=== PATIENT | female | born 1980 | race Caucasian/White ===

== ENCOUNTER 2018-03-21 13:12 | Day surgery (SDC) | payer OTHER, SELFPAY ==
--- NOTE | 2018-03-14 10:02 | NURSING ---
pt noncompliant with health history. refused to give hx of surgeries and health questions. stated she has had anesth. in the past at [facility] and this should be on file. Would not provide a list of home medications. stated she takes medications that she cannot function without and will take them the day of surgery. dr. wilson's office called and asked if they had a list of home medications on file and they reported that pt reports she does not take any medications. pt instructed to call pat # back with an updated list of medications.
--- NOTE | 2018-03-21 13:12 | DT_ITS ---
This patient was seen during an EMR downtime March 18, 2018 - March 25, 2018. This patient may have a combination of paper and electronic documentation or all paper documentation. All documentation is viewable within the e-chart portion of [facility] for each patient visit.
--- NOTE | 2018-03-21 15:17 | FALS_PTH ---
PATIENT: JULIO BARRERA [place] [facility] [id number] AGE/SX: 37/F ROOM: RE03/21/[address]: Dr. Chrissie Conway MD : 1980 BED: DIS: 03/21/2018 SPEC #: [id number] RECD: 03/22/18 10:49 STATUS: GASTON VINCENT #: [id number] SUE: 03/21/18 15:[address]: Chrissie Conway DEPT: SURGICAL PATHOLOGY RECD BY: Drew Woodward ENTERED: 03/22/18 10:54 SP TYPE: FALL TUBES OTHR DR: Dr. Yoandy Brody MD Tissues: Fallopian tube Procedures: Surgery Specimen Level II HEADER OPERATION: Laparoscopic salpingectomy PRE-OP DIAGNOSIS: Desires sterilization TISSUE SUBMITTED: Bilateral fallopian tube portions MICROSCOPIC DIAGNOSIS Bilateral fallopian tubes, salpingectomy: Bilateral fallopian tubes including fimbrial ends, no pathologic diagnosis. SJ:danilo 03/25/18 MICROSCOPIC DESCRIPTION Slides are reviewed. GROSS DESCRIPTION Received in fixative is one container labeled with the patient's name and designated right fallopian and left fallopian tube portions. The specimen consists of bilateral fallopian tubes including fimbrial ends. The fallopian tubes are not identified as right or left. One of the fallopian tubes measure 7 cm in length and 0.9 cm in diameter. The second fallopian tube measures 6 cm in length and 0.8 cm in diameter. Sections do not reveal any mass lesion. Post Anesthesia Room Nurse sections are submitted in two cassettes with each cassette containing one fallopian tube. / SJ:danilo 03/22/18 TC:4 CPT: 94087 x2
[2018-03-24 13:27] LABS: Absolute Neutrophil Count 2.4 X10^3/uL (2.0-7.7); Basophil% 0.5 % (0-1); Eosinophils% 2.3 % (0-5); Hematocrit 41.2 % (37-47); Hemoglobin 14.2 g/dl (12.0-15.0); Lymphocyte % 51.6 % (19-41); Mean Corp Hgb Conc 34.5 g/gl (32-36); Mean Corpuscular Hgb 30.5 pg (27.0-32.0); Mean Corpuscular Volume 88.6 fL (81-99); Mean Platelet Vol. 9.9 fl (6.2-12.0); Monocyte% 6.9 % (0-10); Neutrophil # 2.35 X10^3/uL (2.7-7.7); Neutrophil % 38.5 % (47-70); POSITIVE COUNT NO; POSITIVE DIFFERENTIAL NO; POSITIVE MORPHOLOGY NO; Platelet Count 272 K/mm3 (150-450); RBC Distribution Width SD 41.4 fl (35.1-43.9); Red Blood Count 4.65 M/mm3 (4.2-5.4); White Blood Count 6.1 K/mm3 (4.4-11.0)
[2018-03-24 13:28] LABS: Absolute Lymphocyte Count 3.15 X10^3/ul (0.83-4.51); Basophil# 0.03 X10^3/uL; Eosinophil# 0.14 X10^3/uL; Lymphocyte # 3.15 X10^3/ul (4.0); Monocyte# 0.42 X10^3/uL
[2018-03-24 14:07] LABS: Internal QC Validated? YES +Cl - CLEAR BKGD; Pregnancy, Urine Negative Negative
== END 2018-03-21 16:54 | disposition home or self-care (01) ==
LOC: SDC 13:14 → AC 13:14
PROVIDERS: Family Provider Family Medicine; PCP Family Medicine; Visit Provider Obstetrics & Gynecology
PROC: (CPT 58661; principal; 2018-03-21 15:00)
DX: Z30.2 Encounter for sterilization (principal); E66.01 Morbid (severe) obesity due to excess calories; Z87.820 Personal history of traumatic brain injury; Z87.891 Personal history of nicotine dependence; Z86.2 Personal history of diseases of the blood and blood-forming organs and certain disorders involving the immune mechanism
CPT/HCPCS: 58661; 81025; 85025; 86850; 86900; 88302; J7120; J2405

== ENCOUNTER → 2019-01-01 16:42 | Outpatient (CLI) | payer OTHER, SELFPAY ==
[2019-01-01 15:14] VITALS: BMI 37.2
--- NOTE | 2019-01-01 15:30 | EMB_PTH ---
PATIENT: JULIO BARRERA LOC: [facility] U#:[id number] AGE/SX: 44/F ROOM: RE01/01/[address]: JUAN Aiken : 1980 BED: DIS: SPEC #: [id number] RECD: 01/01/19 16:30 STATUS: GASTON RETello #: [id number] SUE: 01/01/19 15:[address]: Olga Wick NP DEPT: SURGICAL PATHOLOGY RECD BY: Won Bowen ENTERED: 01/02/19 10:35 SP TYPE: ENDOM BX/C PARAG DR: Dr. Yoandy Brody MD Tissues: Endometrium, NOS Procedures: Surgery Specimen Level IV HEADER OPERATION: Endometrial biopsy PRE-OP DIAGNOSIS: Abnormal uterine bleeding TISSUE SUBMITTED: Endometrial lining MICROSCOPIC DIAGNOSIS Endometrial biopsy: Mildly disordered proliferative endometrium. SJ:danilo 01/03/19 MICROSCOPIC DESCRIPTION Slides are reviewed. GROSS DESCRIPTION Received is one container labeled with the patient's name and not further designated. The specimen consists of multiple fragments of hemorrhagic soft tissue that in aggregate measure 3 x 2.5 x 0.3 cm. The specimen is totally submitted in one cassette. / SJ:danilo 01/02/19 TC:5 CPT: 44790
== END ==
PROVIDERS: Family Provider Family Medicine; PCP Family Medicine; Referring Provider Nurse Practitioner Women's Health; Visit Provider Nurse Practitioner Women's Health
DX: N93.9 Abnormal uterine and vaginal bleeding, unspecified (principal)
CPT/HCPCS: 88305

== ENCOUNTER → 2019-01-10 07:30 | Outpatient (CLI) | payer OTHER, SELFPAY ==
[2019-01-01 15:14] VITALS: BMI 37.2
--- NOTE | 2019-01-10 07:36 | US_ITS ---
STUDY: ULTRASOUND OF THE FEMALE PELVIS - COMPLETE REASON FOR EXAM: Female, 38 years old. Menorrhagia LMP: 12/26/2018 TECHNIQUE: Transabdominal imaging initially performed with subsequent endovaginal imaging needed due to poor acoustic window (decompressed urinary bladder). TECHNICAL QUALITY: Adequate. COMPARISON: None. FINDINGS: The uterus is anteverted and is in a midline position. The uterus measures 12.9 x 6.0 x 5.9 cm. There are Nabothian cysts of the cervix. The endometrium measures 10.6 mm in thickness, and is hyperechoic. There is no demonstrated endometrial mass. There is no demonstrated myometrial mass. I.U.D. - The patient does not have an I.U.D. The right ovary is visualized. The right ovary measures 3.4 x 3.5 x 2.3 cm. There is a dominant follicle the right ovary measuring 2.6 cm. There is no visualized right adnexal mass or complex lesion. There is normal arterial and normal venous vascularity. The left ovary is visualized. The left ovary measures 2.4 x 1.5 x 2.1 cm. There is no left ovarian cyst or ovarian mass. There is no visualized left adnexal mass or complex lesion. There is normal arterial and normal venous vascularity. There is no fluid in the cul-de-sac. Urinary bladder is not well-distended. US/Transvaginal Non- IMPRESSION: Normal female pelvis. Electronically Signed: Hao Caban MD at 12:14 EDT , Service support ,
--- NOTE | 2019-01-10 07:36 | US_ITS ---
STUDY: ULTRASOUND OF THE FEMALE PELVIS - COMPLETE REASON FOR EXAM: Female, 38 years old. Menorrhagia LMP: 12/26/2018 TECHNIQUE: Transabdominal imaging initially performed with subsequent endovaginal imaging needed due to poor acoustic window (decompressed urinary bladder). TECHNICAL QUALITY: Adequate. COMPARISON: None. FINDINGS: The uterus is anteverted and is in a midline position. The uterus measures 12.9 x 6.0 x 5.9 cm. There are Nabothian cysts of the cervix. The endometrium measures 10.6 mm in thickness, and is hyperechoic. There is no demonstrated endometrial mass. There is no demonstrated myometrial mass. I.U.D. - The patient does not have an I.U.D. The right ovary is visualized. The right ovary measures 3.4 x 3.5 x 2.3 cm. There is a dominant follicle the right ovary measuring 2.6 cm. There is no visualized right adnexal mass or complex lesion. There is normal arterial and normal venous vascularity. The left ovary is visualized. The left ovary measures 2.4 x 1.5 x 2.1 cm. There is no left ovarian cyst or ovarian mass. There is no visualized left adnexal mass or complex lesion. There is normal arterial and normal venous vascularity. There is no fluid in the cul-de-sac. Urinary bladder is not well-distended. US/Pelvic (Non ) IMPRESSION: Normal female pelvis. Electronically Signed: Hao Caban MD at 12:14 EDT , Service support ,
== END ==
PROVIDERS: Family Provider Family Medicine; PCP Family Medicine; Referring Provider Nurse Practitioner Women's Health; Visit Provider Nurse Practitioner Women's Health
DX: N92.0 Excessive and frequent menstruation with regular cycle (principal)
CPT/HCPCS: 76830; 76856

== ENCOUNTER → 2020-10-29 17:06 | Outpatient (CLI) | payer OTHER, SELFPAY ==
[2019-01-01 15:14] VITALS: BMI 37.2
== END ==
PROVIDERS: PCP Family Medicine; Referring Provider Family Medicine; Visit Provider Family Medicine
DX: U07.1 COVID-19 (principal)
CPT/HCPCS: 87635; C9803; U0005; U0003

== ENCOUNTER 2021-12-21 10:00 | Outpatient (RCR) | payer OTHER, SELFPAY ==
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
--- NOTE | 2021-12-21 10:31 | HP.PTREVAL ---
Dr. Yoandy Brody MD, It has been my pleasure to treat JULIO BARRERA over the last 3 visits for Post Concussion Syndrome, Chronic JADE. Please see the progress note below for an update on the physical therapy plan of care! Subjective: Did well with exercises. Prefers them at home with band. Stretches going well. Saw surgeon and will not have thoracic outlet surgery. Feels better endurance and strength better that she can take more in her neck and shoulders. Wants to continue with current workout progressions and adding any more exercises. JADE not a big problem and not as intense or kick in as quick as she gets stronger. Objective/Function: Full UE AROM, minimal slowness at end of elevation, strength UE at 4/5 without myotomal weakness in UE. Nerve stretches being done properly and not a problem today. Some tingling intermittently in L forearm. Full neck aROM without c/o pain today. Overall patient doing very well and with positive attitude. Does not wish to get into more gym based core or LE strength ex today as she wants to focus on her current ex which are helping. Plan Plan: f/u one month if needed and desired to progress to gym/home LE and abd/back ext strrength. Pt may call to cancel if doing well and then will discharge or may call prior if condition worsens. Balance/Gait/Functional tests - Balance/Special Test Scores Oswestry Neck Score: 29 Goals Goal 1:: Patient will be I with HEP and progression Goal Time Frame: 4-6 Weeks Goal Progress: Goal Met Goal 2:: Patient will maintain proper posture t/o tx session to demo increased core s/s Goal Time Frame: 4-6 Weeks Goal Progress: Goal Met Goal 3:: Patient will report no pain with nerve glides Goal Time Frame: 4-6 Weeks Goal Progress: Progressing Anticipated Interventions Patient/Client Instruction: Educate patient on: Benefits of Fitness Program Therapeutic Exercise to Include: Strength training, Endurance training, Balance training, Coordination, Agility training, Body mechanics, Postural training, Flexibilty training, Gait and locomotor training, Neuromotor development, Dynamic Lumbar Stabilization, Scapular Strength/Stabilization For the Purpose of:: To improve muscle performance and motor function Please do not hesitate to contact me at [phone] by phone or if you have questions or concerns regarding this new plan of care! Sincerely, Dannie Esquivel, DPT, OCS, CSCS
--- NOTE | 2022-03-30 15:24 | HP.PT.NRP ---
JULIO BARRERA was seen in my office for initial evaluation on 11/07/21. The following Plan of Care was established for this patient: Initial Frequency: 2x /Week Initial Duration: 4 Weeks Patient/Client Instruction: Educate patient on: Benefits of Fitness Program Therapeutic Exercise to Include: Strength training, Endurance training, Balance training, Coordination, Agility training, Body mechanics, Postural training, Flexibilty training, Gait and locomotor training, Neuromotor development, Dynamic Lumbar Stabilization, Scapular Strength/Stabilization For the Purpose of:: To improve muscle performance and motor function This patient was last seen in our office . Pertinent comments regarding their Physical therapy will appear below: Patient has not attended PT in over 30 days- appropriate to be d/c and return to MD for further evaluation as needed. At this point I will be discontinuing this patient from physical therapy. I would be happy to see this patient again in the future if found appropriate by the physician. Thank you! Nikki Valenzuela, DPT Balance/Gait/Functional tests - Balance/Special Test Scores Oswestry Neck Score: 29
== END 2021-12-21 19:00 | disposition home or self-care (01) ==
LOC: PT 10:00
PROVIDERS: PCP Family Medicine; Referring Provider Family Medicine; Visit Provider Family Medicine
DX: F07.81 Postconcussional syndrome (principal); R51.9 Headache, unspecified
CPT/HCPCS: 97110; 97162; 97530

== ENCOUNTER 2021-12-30 10:37 | Outpatient (CLI) | payer OTHER, SELFPAY ==
--- NOTE | 2021-12-30 10:38 | BI_ITS ---
MAMMOGRAPHY - BILATERAL SCREENING 3-D TOMOSYNTHESIS REASON FOR EXAM: Female, 41 years old. screening for breast cancer PERTINENT HISTORY: No significant family history. TECHNIQUE: 2-D mammograms and 3-D Tomosynthesis of the breast (s) were performed. CAD was performed. COMPARISON: None. FINDINGS: The breast composition is composed of scattered fibroglandular density. Scattered benign calcifications are seen. No dense spiculated masses or suspicious microcalcifications are identified. No architectural distortion is identified. There is no skin thickening or retraction. Bilateral large benign rim calcifications likely from prior trauma. BI/SCRN MAMM (CAD)W/JOYCE BILAT IMPRESSION: No mammographic signs of malignancy. Routine yearly mammograms recommended. ASSESSMENT CATEGORY: BIRADS Category 2: Benign. A letter regarding these results will be sent to the patient by the facility within 30 days. FOLLOW UP RECOMMENDATION: Yearly follow up mammogram recommended. (A) Approximately 10% of breast cancers are not detected by mammography. A normal mammogram should not delay biopsy of a clinically suspicious abnormality. Electronically Signed: Drew Kaur MD at 13:22 EDT ,
== END 2021-12-30 23:59 | disposition home or self-care (01) ==
LOC: OPBI 10:37
PROVIDERS: PCP Family Medicine; Referring Provider Obstetrics & Gynecology; Visit Provider Obstetrics & Gynecology
DX: Z12.31 Encounter for screening mammogram for malignant neoplasm of breast (principal)
CPT/HCPCS: 77063; 77067

== ENCOUNTER → 2022-03-10 | Outpatient (CLI) | payer OTHER, SELFPAY ==
[2022-03-15 09:54] LABS: HPV APTIMA, High Risk Negative (Negative)
== END | disposition home or self-care (01) ==
LOC: LABSPEC 03-17 05:00
PROVIDERS: PCP Family Medicine; Visit Provider Obstetrics & Gynecology
DX: Z01.419 Encounter for gynecological examination (general) (routine) without abnormal findings (principal)
CPT/HCPCS: 87624; 88175; G0145

== ENCOUNTER 2022-10-10 09:01 | Emergency (ER) | payer OTHER, SELFPAY ==
[2022-10-10 09:02] VITALS: BP 154/94; PULSE 138; RESP 16; TEMP 36.4; O2SAT 100; BMI 32.8
--- NOTE | 2022-10-10 09:16 | EDS_ITS ---
HPI HPI - Female History of Present Illness Chief Complaint: Vag Bleeding Narrative Narrative: 42-year old female past medical history of bleeding disorder but she is unsure as to what type, presents with heavy vaginal bleeding that she has had over the last few days. She became lightheaded yesterday. She relates history that she has had regular menses over the last few years that have been very heavy in nature. Her last menstrual period started on September 04, approximately over a month ago. She had bleeding daily since then. Over the last few days she had increased, heavy bleeding and felt lightheaded. In the past, 2 years ago, she tried control pills which helped temporarily, but stopped taking them. She states that her [facility] OPERATOR's office sent her in here because of the lightheadedness and continued heavy bleeding. Past surgical history includes bilateral tubal ligation. She does not take blood thinners. She states over the last 24 hours she is currently using around 4 pads/tampons per hour. PFSH PFSH Home Medications norethindrone acetate 5 mg tablet (Aygestin) 5 mg PO DAILY #50 tabs 10/10/22 [Rx Last Taken Unknown] Allergy/AdvReac Type Severity Reaction Status Date / Time Tetanus Vaccines and Toxoid AdvReac Swelling Verified 10/10/22 09:02 [Tetanus Vaccines & Toxoid] Family History Mother Cancer lung Grandmother Breast cancer Heart disease Surgical History delivery delivered H/O tubal ligation Hx of breast reduction, elective Social History Smoking Status: Never smoker alcohol intake: never substance use type: does not use caffeine: Yes frequency: 5-6 times per week seatbelt use: always do you feel safe at home: Yes additional social history: [employer] 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 HEENT: No sore throat. No neck pain. No loss of vision. No rhinorrhea. Cardiovascular: No chest pain. No palpitations. No pedal edema. Respiratory: No cough, no shortness of breath. Abdominal: No abdominal pain. No nausea. No vomiting. Genitourinary: No dysuria. No hematuria. Increased vaginal bleeding. Having daily menstruation since September 04, over a month ago. Musculoskeletal: No myalgias. No arthralgias. Neurologic: No headaches. No dizziness. Positive lightheadedness. Skin: No rash. No change in color. Psychiatric: No depression. No anxiety. EXAM Physical Exam Narrative Exam Narrative: Afebrile. Vital signs noted. HEENT: Normocephalic. Atraumatic. PERRL, EOMI. Neck soft and supple. No point tenderness or step off. Cardiovascular: Positive tachycardia. No murmurs, rubs, or gallops appreciated. Respiratory: No tachypnea. Lungs clear to auscultation bilaterally. Gastrointestinal: Abdomen soft, nontender, with normoactive bowel sounds. No rebound or guarding. Neurological: Awake. Alert. Nonfocal, nonlateralizing. Skin: No rash. Normal color. No pallor. No subconjunctival Tyverb pallor or central cyanosis. Musculoskeletal: No pedal edema. Full range of motion extremities. Const Vital Signs: 10/10/22 09:02 Temperature 97.6 F L Temperature Source Temporal Pulse Rate 138 H Respiratory Rate 16 Blood Pressure 154/94 H Blood Pressure Mean 114 Pulse Ox 100 Oxygen Delivery Method Room Air MDM MDM MDM Narrative Medical decision making narrative: CBC and serum test was obtained. I will perform pelvic examination. CBC shows hemoglobin of 10.9 with normal platelet count of 304. Serum test is negative. Chaperoned pelvic examination did reveal clots and old blood in the vaginal vault which were removed with cotton-tipped swabs, and small amount of blood coming from the cervical os. No active hemorrhaging or repooling of blood in the vaginal vault. I discussed the patient with Dr. Chrissie Conway. She would like an ultrasound performed, and the patient started on Aygestin, 5 mg 3 times a day for 2 days, then twice a day until bleeding stops, then once daily thereafter. She would like 50 tablets with 1 refill prescribed. Patient was warned of the risk of thrombophlebitis, and blood clots and other blood vessels, but she does have a bleeding disorder. She acknowledges an understanding. Ultrasound shows endometrium is nonspecifically thickened at 13 mm and heterogeneous, no evidence of discrete lesion or polyp/fibroid. At this point in time, I feel she be discharged safely home to follow-up with her [facility]. Return instructions to the emergency department were reviewed. Disposition is discharged home in stable condition. Lab Data Attestation: I reviewed the patient's lab results. Labs: Laboratory Results - last 24 hr 10/10/22 10/10/22 09:43 09:43 WBC 4.6 RBC 3.57 L Hgb 10.9 L Hct 32.7 L MCV 91.6 MCH 30.5 MCHC 33.3 RDW Std Deviation 42.4 RDW Coeff of Monse 13.0 Plt Count 304 MPV 9.8 Immature Gran % (Auto) 0.600 Neut % (Auto) 48.5 Lymph % (Auto) 43.1 H [place] % (Auto) 5.8 Eos % (Auto) 1.1 Baso % (Auto) 0.9 Absolute Neuts (auto) 2.2 Absolute Lymphs (auto) 1.99 Nucleated RBC % 0 Serum , Qual NEGATIVE Radiography Diagnostic Testing: Clinical Impression(s) from Imaging Studies Transvaginal US 10/10/22 10:11 IMPRESSION: Endometrium is nonspecifically thickened at 13 mm and is heterogeneous but there is no discrete lesion, or polyp Sonographically normal left ovary, right ovary not visualized No demonstrated free fluid Electronically Signed: Carlton Arreola MD at 11:30 EST Reading Location ID and State: [facility] / [place] , Service support , Discharge Plan Triage Chief Complaint: Vag Bleeding ED Provider: Terell Cristobal Dx/Rx/DC Orders Clinical Impression: Abnormal vaginal bleeding, H/O bleeding disorder Instructions: Understanding Uterine Bleeding, ED Dysfunctional Uterine Bleeding Prescriptions: New norethindrone acetate [Aygestin] 5 mg tablet 5 mg PO DAILY Qty: 50 1RF Rx Instructions: Start 5 mg by mouth 3 times a day for 2 days, then 5 mg by mouth twice a day until bleeding stops, then 5 mg by mouth once a day Primary Care Provider: Yoandy Brody Referrals: Yoandy Brody MD [Primary Care Provider] - Chrissie Conway MD [Med Staff - Active Staff] - As soon as possible Disposition Disposition: Home, Self Care
[2022-10-10 09:54] LABS: Absolute Lymphocyte Count 1.99 X10^3/uL (0.83-4.51); Absolute Neutrophil Count 2.2 X10^3/uL (2.0-7.7); Basophil# 0.04 X10^3/uL; Basophil% 0.9 % (0-1); Eosinophil# 0.05 X10^3/uL; Eosinophils% 1.1 % (0-5); Hematocrit 32.7 % (37-47); Hemoglobin 10.9 g/dL (12.0-15.0); Lymphocyte # 1.99 X10^3/ul (0.83-4.51); Lymphocyte % 43.1 % (19-41); Mean Corp Hgb Conc 33.3 g/dL (32-36); Mean Corpuscular Hgb 30.5 pg (27.0-32.0); Mean Corpuscular Volume 91.6 fL (81-99); Mean Platelet Vol. 9.8 fl (6.2-12.0); Monocyte# 0.27 X10^3/uL; Monocyte% 5.8 % (0-10); NRBC Flagged by Analyzer 0 % (0-5); Neutrophil # 2.24 X10^3/uL (2.7-7.7); Neutrophil % 48.5 % (47-70); Platelet Count 304 K/mm3 (150-450); RBC Distribution Width SD 42.4 fl (35.1-43.9); Red Blood Count 3.57 M/mm3 (4.2-5.4); White Blood Count 4.6 K/mm3 (4.4-11.0)
[2022-10-10 10:02] LABS: Internal QC Validated? YES +Cl - CLEAR BKGD; Pregnancy, Serum, hCG Quali. NEGATIVE Negative
--- NOTE | 2022-10-10 10:11 | US_ITS ---
INDICATION: Vaginal bleeding Patient is 42-year-old female EXAMINATION: Ultrasound US Transvaginal Non-OB TECHNIQUE: Transvaginal (for optimal evaluation of the adnexa) pelvic ultrasound was performed. Grayscale, spectral waveform, and color flow Doppler evaluation of the adnexa. COMPARISON: None. FINDINGS: UTERUS: Anteverted, tilted left. The uterus measures 11.9 x 6.7 x 5.9 cm. There is no uterine mass. The endometrial stripe measures 13 millimeters in AP diameter which is within normal limits. RIGHT OVARY: Not visualized LEFT OVARY: 2.4 x 1.6 x 1.9 cm. Non-enlarged, normal echogenicity. There is normal arterial inflow and venous outflow present in the left ovary. FREE FLUID: None. US/Transvaginal Non- IMPRESSION: Endometrium is nonspecifically thickened at 13 mm and is heterogeneous but there is no discrete lesion, or polyp Sonographically normal left ovary, right ovary not visualized No demonstrated free fluid Electronically Signed: Carlton Arreola MD at 11:30 EST ,
[2022-10-10] MEDS: 0.9% Normal Saline 1,000 ML 999 ML IV (10:47)
[2022-10-10 12:00] VITALS: BP 113/72; PULSE 90; RESP 16; O2SAT 100
== END 2022-10-10 12:01 | disposition home or self-care (01) ==
PROVIDERS: Emergency Provider Emergency Medicine; PCP Family Medicine; Visit Provider Emergency Medicine
DX: N93.9 Abnormal uterine and vaginal bleeding, unspecified (principal)
CPT/HCPCS: 76830; 84703; 85025; 99283; J7030; A4216

== ENCOUNTER → 2022-11-16 | Outpatient (CLI) | payer OTHER, SELFPAY ==
--- NOTE | 2022-11-16 | EMB_PTH ---
PATIENT: JULIO BARRERA LOC: [facility] U#:[id number] AGE/SX: 42/F ROOM: RE11/16/[address]: Dr. Chrissie Conway MD : 1980 BED: DIS: 11/16/2022 SPEC #: [id number] RECD: 11/16/22 16:13 STATUS: GASTON KAUR #: [id number] SUE: 11/16/22 00:[address]: Chrissie Conway DEPT: SURGICAL PATHOLOGY RECD BY: Miranda Collier ENTERED: 11/17/22 12:44 SP TYPE: ENDOM BX/C PARAG DR: Dr. Yoandy Brody MD Tissues: Endometrium, NOS Procedures: Surgery Specimen Level IV HEADER OPERATION: Endometrial biopsy PRE-OP DIAGNOSIS: Abnormal uterine bleeding TISSUE SUBMITTED: Endometrial biopsy MICROSCOPIC DIAGNOSIS Endometrium, biopsy: Fragments of benign superficial glandular and squamous mucosa. See comment. AM:danilo 11/20/2022 COMMENT The specimen may contain fragments of endocervix, endometrium and squamous mucosa. Clinical correlation is suggested. MICROSCOPIC DESCRIPTION Slides are reviewed. GROSS DESCRIPTION Received is one container labeled with the patient's name and not further designated. The specimen consists of multiple irregular fragments of [place] soft tissue that in aggregate measure <0.1 x <0.1 x <0.1 cm. The specimen is totally submitted in one cassette. / SJ:danilo 11/17/2022 TC:5 CPT: 29924
== END | disposition home or self-care (01) ==
LOC: LABSPEC 16:21
PROVIDERS: PCP Family Medicine; Visit Provider Obstetrics & Gynecology
DX: N93.9 Abnormal uterine and vaginal bleeding, unspecified (principal)
CPT/HCPCS: 88305

== ENCOUNTER → 2023-03-26 | Outpatient (CLI) | payer OTHER, SELFPAY ==
--- NOTE | 2023-03-26 14:23 | BI_ITS ---
MAMMOGRAPHY - BILATERAL DIAGNOSTIC REASON FOR EXAM: Female, 42 years old. Palpable lump at the 12:00 position of the left breast. PERTINENT HISTORY: Grandmother with breast cancer. History of prior bilateral breast reduction surgery. TECHNIQUE: Digital bilateral breast mor (3D mammographic acquisition) in the CC and MLO projections. 2-D mediolateral oblique (MLO) and craniocaudad (CC) views of both breasts were obtained. CAD: Full Field Digital Mammography with Computer Added Detection was performed. COMPARISON: Comparison is made with prior study dated December 30, 2021. FINDINGS: Breast Composition: The breasts are almost entirely fatty. Stable bilateral densely calcified nodules in both breasts. The palpable lump corresponds to a 2.5 cm x 2 cm densely calcified nodule in the superior retroareolar region of the left breast. No other significant abnormalities are identified. There has been no significant change since the prior study. BI/DIAG MAMM W/CAD, BILAT IMPRESSION: Stable bilateral diagnostic mammogram. One year follow-up recommended. (A) ASSESSMENT CATEGORY: BIRADS Category 2: Benign. A letter regarding these results will be sent to the patient by the facility within 30 days. Approximately 10% of breast cancers are not detected by mammography. A normal mammogram should not delay biopsy of a clinically suspicious abnormality. Electronically Signed: Drake Myrick MD at 15:42 EDT ,
== END | disposition home or self-care (01) ==
PROVIDERS: Referring Provider Obstetrics & Gynecology; Visit Provider Obstetrics & Gynecology
DX: N63.25 Unspecified lump in the left breast, overlapping quadrants (principal)
CPT/HCPCS: 77062; 77066; G0279

== ENCOUNTER → 2023-04-03 | Outpatient (CLI) | payer OTHER, SELFPAY ==
--- NOTE | 2023-04-03 12:41 | US_ITS ---
INDICATION: lost IUD strings EXAMINATION: Ultrasound US Transvaginal Non-OB TECHNIQUE: Transvaginal pelvic ultrasound was performed. Grayscale, spectral waveform, and color flow Doppler evaluation of the adnexa. COMPARISON: None. FINDINGS: UTERUS: Anteverted. The uterus measures 11.6 x 6.6 x 6.0 cm. There is myometrial heterogeneity with no uterine mass. There is an IUD in place. The endometrial stripe measures 4 mm in AP diameter which is within normal limits. RIGHT OVARY: 1.5 x 2.1 x 2.1 cm. Non-enlarged, normal echogenicity. There is normal arterial inflow and venous outflow present in the right ovary. LEFT OVARY: 2.9 x 2.5 x 2.5 cm. There is a 2.7 x 2.1 x 2.0 cm cystic nodule. There is normal arterial inflow and venous outflow present in the left ovary. FREE FLUID: None. US/Transvaginal Non- IMPRESSION: IUD in the uterus. Left ovarian cystic nodule. Electronically Signed: Paddy Rivas DO at 16:57 EDT ,
== END | disposition home or self-care (01) ==
PROVIDERS: Referring Provider Obstetrics & Gynecology; Visit Provider Obstetrics & Gynecology
DX: T83.32XA Displacement of intrauterine contraceptive device, initial encounter (principal)
CPT/HCPCS: 76830

== ENCOUNTER → 2023-05-15 | Outpatient (CLI) | payer OTHER, SELFPAY ==
--- NOTE | 2023-05-15 07:05 | US_ITS ---
STUDY: ULTRASOUND TRANSVAGINAL CLINICAL: Female, 42 years old. Left ovarian cyst. TECHNIQUE: Transvaginal COMPARISON: 04/03/2023 FINDINGS: Normal uterine size measuring 12.7 cm in maximal craniocaudal dimension. There are no myometrial masses. Normal endometrial thickness measuring 2.7 mm. There are no endometrial masses, and there is no fluid in the endometrial cavity. IUD again noted in satisfactory position Normal uterine cervix. Normal right ovary, measuring 3.4 x 1.8 x 1.7 cm. There are multiple follicles without a dominant cyst. Normal left ovary, measuring 2.0 x 2.0 x 2.1 cm. There are multiple follicles without a dominant cyst. There is no free fluid in the pelvis. US/Transvaginal Non- IMPRESSION: No suspicious sonographic findings, IUD noted in satisfactory position Previous noted left ovarian cyst has resolved Electronically Signed: Carlton Arreola MD at 11:56 EDT ,
== END | disposition home or self-care (01) ==
LOC: US 07:04
PROVIDERS: Referring Provider Obstetrics & Gynecology; Visit Provider Obstetrics & Gynecology
DX: N83.209 Unspecified ovarian cyst, unspecified side (principal)
CPT/HCPCS: 76830

== ENCOUNTER → 2024-03-28 | Outpatient (CLI) | payer OTHER, SELFPAY ==
--- NOTE | 2024-03-28 08:21 | BI_ITS ---
MAMMOGRAPHY - BILATERAL SCREENING REASON FOR EXAM: Female, 43 years old. Routine annual screening examination. PERTINENT HISTORY: Grandmother with breast cancer. Evidence of prior bilateral breast reduction surgery. Bilateral breast lumps. TECHNIQUE: Digital bilateral breast joyce (3D mammographic acquisition) in the CC and MLO projections. 2-D mediolateral oblique (MLO) and craniocaudad (CC) views of both breasts were obtained. CAD: Full Field Digital Mammography with Computer Added Detection was performed. COMPARISON: Comparison is made with prior study dated December 30, 2021 and March 26, 2023. FINDINGS: Breast Composition: The breasts are almost entirely fatty. Stable bilateral densely calcified nodules in both breasts. No other significant abnormalities are identified. There has been no significant change since the prior study. BI/SCRN MAMM (CAD)W/JOYCE BILAT IMPRESSION: Stable bilateral screening mammogram. Yearly follow-up mammogram recommended. (A) ASSESSMENT CATEGORY: BIRADS Category 2: Benign. A letter regarding these results will be sent to the patient by the facility within 30 days. Approximately 10% of breast cancers are not detected by mammography. A normal mammogram should not delay biopsy of a clinically suspicious abnormality. [id number] Electronically Signed: Drake Myrick MD at 9:17 EDT ,
== END | disposition home or self-care (01) ==
LOC: OPBI 08:20
PROVIDERS: Referring Provider Obstetrics & Gynecology; Visit Provider Obstetrics & Gynecology
DX: Z12.31 Encounter for screening mammogram for malignant neoplasm of breast (principal)
CPT/HCPCS: 77063; 77067

== ENCOUNTER → 2025-04-02 | Outpatient (CLI) | payer OTHER, SELFPAY ==
--- OUTSIDE RECORDS SUMMARY | 2025-04-02 07:06 | XMS RPT_ITS | CCD ---
Author Organization 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 Yoandy Brody Primary Care Provider [phone] Dr. Yoandy Brody Referring Provider Dr. Chrissie Conway Attending Provider Peggy Brody) Primary Care Provider PEGGY BRODY) Primary Care Unavailable MARTINEZ HERNANDEZ Attending Unavailable PEGGY BRODY) Primary Care Unavailable MARTINEZ HERNANDEZ Referring Unavailable PEGGY BRODY) Primary Care Unavailable MARTINEZ HERNANDEZ Referring Unavailable MARTINEZ HERNANDEZ Attending Unavailable PEGGY BRODY) Primary Care Unavailable MARTINEZ HERNANDEZ Attending Unavailable Dr. Yoandy Brody Primary Care Provider Dr. Yoandy Brody Referring Provider [phone] JOSE Cross Attending Provider [phone] Dr. Chrissie Conway Attending Provider Dr. Yoandy Brody Referring Provider Dr. Chrissie Conway Attending Provider [phone] Chrissie Conway Attending Unavailable Care Physician, No Primary Primary Care Unava ilable Chrissie Conway Referring Unavailable Assessment, Health Risk Attending Unavaila ble Care Physician, No Primary Primary Care Unava ilable Chrissie Conway Attending Unavailable Chrissie Conway Referring Unavailable Care Physician, No Primary Primary Care Unava ilable hCrissie Conway Attending Unavailable Care Physician, No Primary Primary Care Unava ilable Care Physician, No Primary Referring Unava ilable Allergies Allergy Classification Reported Allergen(s) Allergy Type Date of Onset Reaction(s) Facility (7 sources) Tetanus Vaccines and Toxoid; Translations: [Tetanus Vaccines and Toxoid] Propensity to adverse reactions 9 [facility] (2 sources) Horse Dander; Translations: [HORSE DANDER] Drug Allergy 1 [facility] (2 sources) Tetanus And Diphtheria Toxoids, Adsorbed, Adult; Translations: [TETANUS AND DIPHTHERIA TOXOIDS, ADSORBED, ADULT] Drug Allergy 2 [facility] (1 source) OTHER; Translations: [OTHER] Propensity to adverse reactions (disorder) 2 [facility] Repository Medications Current Medications Medication Drug Class(es) Dates Sig (Normalized) Sig (Original) levonorgestrel 0.089882 mg/hr intrauterine system (4 sources) Progestin, Progestin-containi ng Intrauterine Device Start: 11-16-2022 Levonorgestrel (Liletta) 20.4 mcg/24 hrs (8 yrs) 52 mg intrauterine device Active 1 DEVICE INTRA-UTER ONCE November 16, 2022 1:00am as a single dose norethindrone acetate 5 mg oral tablet (4 sources) Start: 10-10-2022 take 1 tablet by mouth three times daily, then take 1 tablet by mouth twice daily, then take 1 tablet by mouth once daily Norethindrone Acetate (Aygestin) 5 mg tablet Active 5 MG PO DAILY October 10, 2022 1:00am Start 5 mg by mouth 3 times a day for 2 days, then 5 mg by mouth twice a day until bleeding stops, then 5 mg by mouth once a day Completed/Discontinued Medications Medication Drug Class(es) Dates Sig (Normalized) Sig (Original) acetaminophen 325 mg / oxyCODONE hydrochloride 5 mg oral tablet (6 sources) Opioid Agonist Start: 11-26-2014 End: 01-21-2018 take 2 tablets by mouth every four hours as needed Oxycodone-Acetamin ophen Discontinued 2 TABLET PO EVERY 4 HOURS NEEDED November 26, 2014 1:00am January 21, 2018 8:55am Levonorgestrel-Ethin yl Estrad (18 sources) Progestin, Estrogen, Progestin-containi ng Intrauterine Device Start: 07-25-2019 End: 03-10-2022 Levonorgestrel-Eth inyl Estrad (Levora-28) 0.15-0.03 mg tablet Discontinued 1 TABLET PO DAILY July 25, 2019 10:25am March 10, 2022 8:40am Start: 07-25-2019 End: 03-10-2022 Levonorgestrel-Ethinyl Estra d (Levora-28) 0.15-0.03 mg tablet Discontinued 1 TABLET PO DAILY July 25, 2019 11:25am March 10, 2022 9:40am Start: 07-25-2019 Levonorgestrel -Ethinyl Estrad (Levora-28) 0.15-0.03 mg tablet Active 1 TABLET PO DAILY July 25, 2019 11:25am Start: 07-23-2019 End: 07-25-2019 Levonorgestrel-Ethinyl Estra d (Levora-28) 0.15-0.03 mg tablet Discontinued 1 TABLET PO DAILY July 23, 2019 1:12pm July 25, 2019 10:25am Start: 07-23-2019 End: 07-25-2019 Levonorgestrel-Ethinyl Estra d (Levora-28) 0.15-0.03 mg tablet Discontinued 1 TABLET PO DAILY July 23, 2019 2:12pm July 25, 2019 11:25am Start: 01-14-2019 End: 07-23-2019 Levonorgestrel-Ethinyl Estra d (Levora-28) 0.15-0.03 mg tablet Discontinued 1 TABLET PO DAILY January 14, 2019 12:46pm July 23, 2019 2:12pm Start: 01-14-2019 End: 07-23-2019 Levonorgestrel-Ethinyl Estra d (Levora-28) 0.15-0.03 mg tablet Discontinued 1 TABLET PO DAILY January 13, 2019 11:00pm July 23, 2019 1:12pm Start: 01-14-2019 End: 07-23-2019 Levonorgestrel-Ethinyl Estra d (Levora-28) 0.15-0.03 mg tablet Discontinued 1 TABLET PO DAILY January 14, 2019 12:00am July 23, 2019 2:12pm ibuprofen 400 mg oral tablet (6 sources) Nonsteroidal Anti-inflammatory Drug Start: 11-26-2014 End: 01-21-2018 take 800 mg by mouth every eight hours Ibuprofen Discontinued 800 MG PO Q8H November 26, 2014 1:00am January 21, 2018 8:55am MEDICATION, NON-DATABASE (7 sources) take 1 capsule by mouth once daily MEDICATION, NON-DATABASE Take 1 capsule by mouth once daily. thyrotropin 0 Active take 1 tablet by mouth once augustina y MEDICATION, NON-DATABASE Take 1 tablet by mouth once daily. ferrofood 0 Active take 1 capsule by mo uth three times daily MEDICATION, NON-DATABASE Take 1 capsule by mouth three times daily. oculotrophin 0 Active take 1 capsule by mo uth three times daily MEDICATION, NON-DATABASE Take 1 capsule by mouth three times daily. neurotrophin 0 Active take 1 capsule by mo uth three times daily MEDICATION, NON-DATABASE Take 1 capsule by mouth three times daily. ribonucleic acid 0 Active take 1 capsule by mo uth three times daily MEDICATION, NON-DATABASE Take 1 capsule by mouth three times daily. Super-EFF 0 Active take 1 capsule by mo uth three times daily in the morning MEDICATION, NON-DATABASE Take 1 capsule by mouth three times daily. duran fletcher 0 Active Comment on above: Take 1 capsule by mo uth once daily. thyrotropin Take 1 tablet by tamiko th once daily. ferrofood Take 1 capsule by mo uth three times daily. oculotrophin Take 1 capsule by mo uth three times daily. neurotrophin Take 1 capsule by mo uth three times daily. ribonucleic acid Take 1 capsule by mo uth three times daily. Super-EFF Take 1 capsule by mo uth three times daily. duran fletcher Vit,Ocfj48-Siux-Zl lic (6 sources) Start: 4 End: 8 take 1 tablet by mouth once daily Vit,Mrza17-Cggc-Khfat Discontinued 1 TABLET PO DAILY July 12, 2014 9:51am January 21, 2018 8:55am Start: 07-12-2014 End: 01-21-2018 take 1 tablet by mouth once daily Vit,Sxee72-Ivsw-Gpqez Discontinued 1 TABLET PO DAILY July 11, 2014 11:00pm January 21, 2018 7:55am Start: 07-12-2014 End: 01-21-2018 take 1 tablet by mouth once daily Vit,Twag60-Filv-Aiofg Discontinued 1 TABLET PO DAILY July 12, 2014 12:00am January 21, 2018 8:55am Problems Active Problems Problem Classification Problem Date Documented Date Episodic/Chronic Complication of device; implant or graft (6 sources) IUD threads lost; Translations: [Displacement of intrauterine contraceptive device, initial encounter] 03-15-2023 Episodic Contraceptive and procreative management (12 sources) Sterilization requested; Translations: [Encounter for sterilization] 10-26-2022 Episodic Deficiency and other anemia (4 sources) Iron deficiency anemia; Translations: [Iron deficiency anemia, unspecified] 10-20-2022 Episodic Deficiency and other anemia (2 sources) Iron deficiency anemia, unspecified; Translations: [Iron deficiency anemia, unspecified] Onset: 04-22-2024 10-20-2022 Episodic Headache; including migraine (1 source) Headache; including migraine; Translations: [Chronic daily headache] Onset: 07-14-2022 Menstrual disorders (13 sources) Menorrhagia; Translations: [Excessive and frequent menstruation with regular cycle] Onset: 04-22-2024 Chronic Nonmalignant breast conditions (6 sources) Breast lump; Translations: [Unspecified lump in the left breast, overlapping quadrants] 03-15-2023 Episodic Other connective tissue disease (1 source) Myofascial pain; Translations: [Myalgia, other site] Episodic Other connective tissue disease (1 source) Neuropathic pain; Translations: [Neuralgia and neuritis, unspecified] Episodic Other connective tissue disease (1 source) Neuralgia and neuritis, unspecified; Translations: [Neuropathic pain] Onset: 07-14-2022 Episodic Other female genital disorders (4 sources) Abnormal vaginal bleeding; Translations: [Abnormal uterine and vaginal bleeding, unspecified] 10-18-2022 Chronic Other hematologic conditions (6 sources) H/O: blood disorder; Translations: [Personal history of diseases of the blood and blood-forming organs and certain disorders involving the immune mechanism] 10-10-2022 Episodic Other hematologic conditions (1 source) Personal history of diseases of the blood and blood-forming organs and certain disorders involving the immune mechanism; Translations: [Personal history of diseases of blood and blood-forming organs] 10-20-2022 Episodic Other nervous system disorders (1 source) Brachial plexus disorder; Translations: [Brachial plexus disorders] Chronic Other nervous system disorders (1 source) Thoracic outlet syndrome; Translations: [Brachial plexus disorders] Chronic Other nervous system disorders (2 sources) Brachial plexus disorders; Translations: [Brachial plexus disorders] Onset: 09-01-2021 Chronic Other screening for suspected conditions (not mental disorders or infectious disease) (4 sources) Patient encounter status; Translations: [Encounter for screening mammogram for malignant neoplasm of breast] Onset: 04-07-2024 03-15-2023 Episodic Spondylosis; intervertebral disc disorders; other back problems (4 sources) Arthropathy of spinal facet joint; Translations: [Spondylosis without myelopathy or radiculopathy, site unspecified] Onset: 08-12-2015 Chronic Unclassified (1 source) Unknown / UNK(Unknown) Onset: 08-16-2016 Unclassified (1 source) Unspecified lump in the left breast, overlapping quadrants; Translations: [Unspecified lump in the left breast, overlapping quadrants] Onset: 04-22-2024 Past or Other Problems Problem Classification Problem Date Documented Date Episodic/Chronic Headache; including migraine (3 sources) Cervicogenic headache; Translations: [Cervicogenic headache] Onset: 12-15-2021 Episodic Other connective tissue disease (1 source) Myalgia, other site; Translations: [Myofascial pain] Onset: 12-15-2021 Episodic Ovarian cyst (3 sources) Cyst of ovary; Translations: [Unspecified ovarian cyst, unspecified side] Onset: 05-21-2023 04-05-2023 Episodic Unclassified (1 source) POSTCONCUSSIONAL SYNDROM Onset: 08-16-2016 Results Test Name Value Interpretation Reference Range Facility Glucoseon 05-01-2024 Glucose [Mass/Vol] 102 mg/dL Normal 74-106 [facility] Comment on above: Result Comment: Fast ing Glucose result from 100 to 125 mg/dL suggests IMPAIRED HOMEOSTASIS per A.D.A. criteria. Performed By: #### L 501.0100, L500.4100 #### [facility] [place], [address] Lipid Profileon 05-01-2024 Cholesterol [Mass/Vol] 179 mg/dL Normal 200 [facility] Comment on above: Result Comment: <200 mg/dL Desirable 200-240 mg/dL Borderline >240 mg/dL High Risk Performed By: #### L 501.0100, L500.4100 #### [facility] [address] [place], [address] Cholesterol in HDL [Mass/Vol] 32 mg/dL Low [facility] Comment on above: Result Comment: The drugs N-Acetylcysteine and Metamizole may falsely depress this assay. Reference Range HDL <40 mg/dL Low HDL Cholesterol HDL >or= 60 mg/dL High HDL Cholesterol Performed By: #### L 501.0100, L500.4100 #### [facility] [address] [place], [address] LDL TNP Normal 0-130 [facility] Comment on above: Performed By: #### L 501.0100, L500.4100 #### [facility] [address] [place], [address] Triglyceride [Mass/Vol] 496 mg/dL High [facility] Comment on above: Result Comment: The drugs N-Acetylcysteine and Metamizole may falsely depress this assay. TRIGLYCERIDE IS GREATER THAN 400 mg/dL. LDL RESULT IS INVALID AND WILL NOT BE REPORTED. Serum Triglycerides Reference Interval Normal <150 mg/dL Borderline high 150 - 199 mg/dL High 200 - 499 mg/dL Very High > or = 500 mg/dL Performed By: #### L 501.0100, L500.4100 #### [facility] [address] [place], [address] VLDL TNP Normal 5-40 [facility] Comment on above: Performed By: #### L 501.0100, L500.4100 #### [facility] [address] 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 [place] [address] OFFICE VISIT Date of Service: 04/22/24 MR#: [id number] Acct: [id number] Name: JULIO SORIANO Rep #: [id number] : 1980 Provider: Dr. 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: No Is patient in pain?: No Allergies Tetanus Vaccines and Toxoid (Tetanus Vaccines Toxoid) Adverse Reaction (Verified 04/22/24 10:43) Swelling Medications ???Medication ???Instructions ???Recorded ???Confirmed ???Type levonorgestrel 20.4 mcg/24 hr (up 1 device intrauterine ONCE 11/16/22 03/15/23 History to 8 yrs) 52 mg intrauterine device (Liletta) Is last menstrual period known: No Post menopausal: No Patient : No : No Control Method: IUD [facility] Medical History Contraceptive management Surgical History H/O tubal ligation Hx of breast reduction, elective delivery delivered Family History Mother Cancer lung Grandmother Breast cancer Heart disease Social History (Updated 04/22/24 @ 10:45 by Lissa Lombardo) current occupational status: employed 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 Date Name GA/Weeks Outcome Route Bth Weight Gen [facility] F[facility] Unknown 2006 Unknown 2014 Josie- [facility] Encounter for routine gynecological examination Details: JULIO SORIANO is a 43 year old who presents for annual exam. Last PAP: 2021 History of abnormal PAP: Last mammogram: 2023 History of abnormal mammogram: Colon cancer screening: due at 46 Other preventative health care screenings: [place] - PCP does screening labs through work Female Reproductive History Cycle Length: >35 Bleeding Duration: 2 Menopausal Symptoms: No hot flashes, No night sweats, No difficulty concentrating and No change in libido ROS Const Constitutional: Reports as per HPI; Denies fatigue, increased appetite, poor appetite, night sweats, weight gain or weight loss Cardio Card: Denies chest pain Resp Resp: Denies cough or dyspnea GI GI: Reports as per HPI; Denies abdominal pain, bloating, constipation, nausea or vomiting : Reports as per HPI and other; Denies difficulty voiding, dysuria, hematuria, hot flashes, nipple discharge, pelvic pain, prolapse symptoms, urinary frequency, urinary incontinence, urinary urgency, vaginal discharge, vaginal dryness, vaginal odor or vaginal pruritus Skin Skin/Breast: Denies changing lesions, breast mass, breast pain, breast skin changes or nipple discharge Psych Psych: Denies anxiety, change in libido, depression or difficulty concentrating Exam Const General: cooperative, healthy appearing, comfortable, no acute distress, well developed and well groomed HENOR Head: normal to inspection and normocephalic Ears: hearing grossly normal bilaterally and external ears normal Nose: external nose normal Face and sinus: normal facial exam Neck Neck: normal visual inspection, full ROM and no lymphadenopathy Thyroid: thyroid normal Chest Chest palpation inspection: normal inspection of the chest Breast inspection: normal inspection of the breasts and normal inspection of the axillae Breast palpation: palpation of the breasts abnormal, normal palpation of the axillae, no axillary lymphadenopathy and abnormal palpation of the breast (left 12 o clock nodular area around scarring post reduction 1-2cm, no bernstein) Resp Effort Inspection: normal respiratory effort GI Inspection: normal to inspection and non-distended Palpation: soft, no hepatosplenomegaly and no guarding General: bladder normal to palpation External Female Exam: normal external appearance, normal appearance of the urethra and no lesions Urethra: normal appearance of the urethra and normal palpation Speculum Exam - Vagina: normal appearance of the vagina and normal vaginal discharge Speculum Exam - (more content not included)... Normal [facility] SCRN MAMM (CAD)W/JOYCE BILATo n 03-28-2024 SCRN MAMM (CAD)W/JOYCE BILAT [facility] Services [address] [place] [address] SCRN MAMM (CAD)W/JOYCE BILAT MR#: [id number] Acct: [id number] Name: JULIO SORIANO Rep #: [id number] : 1980 F 43 From: Drake hugo MD PCP: Care Physician,No Primary Status: REG [facility] Study: SCRN MAMM (CAD)W/JOYCE BILAT Date of Exam: 03/15 02/05 Exam# [id number] Ordering Dr: Chrissie Conway [id number] MAMMOGRAPHY - BILATERAL SCREENING REASON FOR EXAM: Female, 43 years old. Routine annual screening examination. PERTINENT HISTORY: Grandmother with breast cancer. Evidence of prior bilateral breast reduction surgery. Bilateral breast lumps. TECHNIQUE: Digital bilateral breast joyce (3D mammographic acquisition) in the CC and MLO projections. 2-D mediolateral oblique (MLO) and craniocaudad (CC) views of both breasts were obtained. CAD: Full Field Digital Mammography with Computer Added Detection was performed. COMPARISON: Comparison is made with prior study dated December 30, 2021 and March 26, 2023. FINDINGS: Breast Composition: The breasts are almost entirely fatty. Stable bilateral densely calcified nodules in both breasts. No other significant abnormalities are identified. There has been no significant change since the prior study. BI/SCRN MAMM (CAD)W/JOYCE BILAT IMPRESSION: Stable bilateral screening mammogram. Yearly follow-up mammogram recommended. (A) ASSESSMENT CATEGORY: BIRADS Category 2: Benign. A letter regarding these results will be sent to the patient by the facility within 30 days. Approximately 10% of breast cancers are not detected by mammography. A normal mammogram should not delay biopsy of a clinically suspicious abnormality. [id number] Electronically Signed: Drake Myrick MD at 9:17 EDT , CC: Dr. Chrissie Conway MD; No Primary Care Physician Vest Backer: Signed Normal [facility] Transvaginal Non-on 05-15-2023 Transvaginal Non- [facility] Services [address] [place] [address] Transvaginal Non- MR#: [id number] Acct: [id number] Name: JULIO SORIANO Rep #: [id number] : 1980 F 42 From: Eusebio Arreola MD PCP: Care Physician,No Primary Status: REG CLI Study: Transvaginal Non- Date of Exam: Exam# [id number] Ordering Dr: Chrissie Conway STUDY: ULTRASOUND TRANSVAGINAL CLINICAL: Female, 42 years old. Left ovarian cyst. TECHNIQUE: Transvaginal COMPARISON: 04/03/2023 FINDINGS: Normal uterine size measuring 12.7 cm in maximal craniocaudal dimension. There are no myometrial masses. Normal endometrial thickness measuring 2.7 mm. There are no endometrial masses, and there is no fluid in the endometrial cavity. IUD again noted in satisfactory position Normal uterine cervix. Normal right ovary, measuring 3.4 x 1.8 x 1.7 cm. There are multiple follicles without a dominant cyst. Normal left ovary, measuring 2.0 x 2.0 x 2.1 cm. There are multiple follicles without a dominant cyst. There is no free fluid in the pelvis. US/Transvaginal Non- IMPRESSION: No suspicious sonographic findings, IUD noted in satisfactory position Previous noted left ovarian cyst has resolved Electronically Signed: Carlton Arreola MD at 11:56 EDT , CC: Dr. Chrissie Conway MD; No Primary Care Physician Vest Backer: Signed Normal [facility] Basophil percentageOrdered B y: HEALTH ASSESSMENT on 04-12-2023 Cholesterol [Mass/Vol] 206 mg/dL <200 [facility] Comment on above: <200 mg/dL Desirable 200-240 mg/dL Borderline >240 mg/dL High Risk Glucose [Mass/Vol] 83 mg/dL 74-106 [facility] Triglyceride [Mass/Vol] 152 mg/dL <199 [facility] Comment on above: The drugs N-Acetylcy steine and Metamizole may falsely depress this assay.Serum Triglycerides Reference Interval Normal <150 mg/dL Borderline high 150 - 199 mg/dL High 200 - 499 mg/dL Very High > or = 500 mg/dL Serum or plasma cholesterol in HDL measurement (mass/volume)Ordered By: HEALTH ASSESSMENT on 04-12-2023 Cholesterol in HDL [Mass/Vol] 49 mg/dL >40 [facility] Comment on above: The drugs N-Acetylcy steine and Metamizole may falsely depress this assay. Reference Range HDL <40 mg/dL Low HDL Cholesterol HDL >or= 60 mg/dL High HDL Cholesterol Serum or plasma cholesterol in VLDL measurement (mass/volume)Ordered By: HEALTH ASSESSMENT on 04-12-2023 Cholesterol in VLDL [Mass/Vol] 30 mg/dL 5-40 [facility] Serum or plasma low density lipoprotein (LDL) cholesterol measurement (mass/volume)Ordered By: HEALTH ASSESSMENT on 04-12-2023 Cholesterol in LDL [Mass/Vol] 127 mg/dL 0-130 [facility] Absolute lymphocyte countOrd ered By: Dr. Cristobal on 10-10-2022 Lymphocytes Auto (Unsp spec) [#/Vol] 1.99 10*3/uL 0.83-4.51 [facility] Basophil percentageOrdered B y: Dr. Cristobal on 10-10-2022 Basophils/100 WBC (Bld) 0.9 % 0-1 [facility] Eosinophils/100 WBC (Bld) 1.1 % 0-5 [facility] Neutrophils (Bld) [#/Vol] 2.2 10*3/uL 2.0-7.7 [facility] Neutrophils/100 WBC (Bld) 48.5 % 47-70 [facility] WBC (Bld) [#/Vol] 4.6 10*3/uL 4.4-11.0 [facility] Beta hCG serum qualOrdered B y: Dr. Cristobal on 10-10-2022 Beta HCG ( test) Ql Negative [facility] Blood erythrocytes count (nu mber/volume)Ordered By: Dr. Cristobal on 10-10-2022 RBC (Bld) [#/Vol] 3.57 10*6/uL 4.2-5.4 [facility] Blood hemoglobin measurement (mass/volume)Ordered By: Dr. Cristobal on 10-10-2022 Hemoglobin (Bld) [Mass/Vol] 10.9 g/dL 12.0-15.0 [facility] Blood lymphocytes/100 leukoc ytesOrdered By: Dr. Cristobal on 10-10-2022 Lymphocytes/100 WBC (Bld) 43.1 % 19-41 [facility] Blood monocytes/100 leukocyt esOrdered By: Dr. Cristobal on 10-10-2022 Monocytes/100 WBC (Bld) 5.8 % 0-10 [facility] Blood platelet mean volumeOr dered By: Dr. Cristobal on 10-10-2022 Platelet mean volume (Bld) [Entitic vol] 9.8 fL 6.2-12.0 [facility] Determination of erythrocyte mean corpuscular volume (MCV)Ordered By: Dr. Cristobal on 10-10-2022 MCV (RBC) [Entitic vol] 91.6 fL 81-99 [facility] Hematocrit Auto (Bld) [Volum e fraction]Ordered By: Dr. Crsitobal on 10-10-2022 Hematocrit (Bld) [Volume fraction] 32.7 % 37-47 [facility] - Hematology and Cell countsOrdered By: Dr. Cristobal on 10-10-2022 Erythrocyte distribution width (RBC) [Entitic vol] 42.4 fL 35.1-43.9 [facility] Erythrocyte distribution width (RBC) [Ratio] 13.0 % 11.6-14.6 [facility] Immature granulocytes/100 WBC (Bld) 0.600 % 0.0-0.9 [facility] Comment on above: IG% - Immature Granu locytes (promyelocytes, myelocytes and metamyelocytes) > 1% indicates that a LEFT SHIFT is Present. MCH (RBC) [Entitic mass] 30.5 pg 27.0-32.0 [facility] Nucleated RBC/100 WBC (Bld) [Ratio] 0 % 0-5 [facility] MCHC Auto (RBC) [Mass/Vol]Or dered By: Dr. Cristobal on 10-10-2022 MCHC (RBC) [Mass/Vol] 33.3 g/dL 32-36 [facility] Platelets bldOrdered By: Dr. 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 ASSESSMENT [facility] Start: 2021 Mammography MAMMOGRAM [facility] Start: 05-22-2019 PAP TESTING PAP TESTING [facility] Start: 2011 HPV TESTING HPV TESTING [facility] Start: 2000 Urine microalbumin profile DTAP,TDAP,TD (1 - Tdap) [facility] Start: 1999 HEPATITIS C SCREENING HEPATITIS C SCREENING [facility] Start: 1981 HEPATITIS B (1 of 3 - 3-dose series) HEPATITIS B (1 of 3 - 3-dose series) [facility] Patient Education Understanding Uterine Bleeding ED Dysfunctional Uterine Bleeding [facility] Work Phone: Patient referral [facility] Work Phone: [place] [facility] [place] Date Payer Category Payer Self-pay [id number] 2023 Unknown [id number] 2014 Private Health Insurance [id number] 2014 Private Health Insurance [facility] UMR CHOICE PLUS [id number] 2014-Present [phone] [address] [address] [place] [address] HMO [id number] Unknown [id number] Unknown [id number] Unknown [id number] Unknown [id number] Social History Date Type Detail Facility Start: 01-01-2019 End: 03-15-2023 Tobacco smoking status [facility] Unknown if ever smoked [facility] Start: 1980 Sex Assigned At Female [facility] Start: 07-14-2022 Tobacco smoking status NHIS Never smoked tobacco [facility] Start: 07-14-2022 Tobacco use and exposure Smokeless tobacco non-user [facility] Start: 07-14-2022 Alcohol intake Ex-drinker (finding) [facility] NEGATED: Highlighted row [facility] Clinical Notes 09-07-2014 to 03-29-2023 Note Date & Type Note Facility 03-29-2023 Evaluation note Diagnosis Onset Date Breast lump on left side at 12 o'clock position acute IUD strings lost acute Menorrhagia acute Encounter for routine gyneco logical examination noneactive [facility] Work Phone: [phone]) 841-555909-30-2022 NoteHNO ID: [id number] Author: Martinez Hernandez MD, PhD Service: ? 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 This flared up her L trap, causing pain and T/N, that has started to calm down after she stopped doing it. Otherwise she was very observant of her exercise and has learned much abiut her different pain sensations and how they relate to each other. Continues to work on her posture and core. Interim history is benign otherwise BP 132/67 Pulse 93 Ht 5' 6 (1.68m) Wt 212 lb (96.2kg) SpO2 97% LMP 12/15/2021 BMI 34.23 kg/(m2). Exam: preserved mentation, CN, coordination, power and gait. She continues to have spasm of traps with traction test resulting in daily tingling but she has good extermity ROM. Impression: as above, with much improved symptoms Suggest: would continue current management May use OTC meds with flare up She is to continue journaling her pain sensations and also to focus on journaling negative life events to help with relaxation. 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 This flared up her L trap, causing pain and T/N, that has started to calm down after she stopped doing it. Otherwise she was very observant of her exercise and has learned much abiut her different pain sensations and how they relate to each other. Continues to work on her posture and core. Interim history is benign otherwise BP 132/67 Pulse 93 Ht 5' 6 (1.68m) Wt 212 lb (96.2kg) SpO2 97% LMP 12/15/2021 BMI 34.23 kg/(m^2). Exam: preserved mentation, CN, coordination, power and gait. She continues to have spasm of traps with traction test resulting in daily tingling but she has good extermity ROM. Impression: as above, with much improved symptoms Suggest: would continue current management May use OTC meds with flare up She is to continue journaling her pain sensations and also to focus on journaling negative life events to help with relaxation. Martinez Hernandez MD, PhD VT: 50 min documented [facility]22 NotePap Smear Specimen AdequacyMay 2021 11:25amComment.Satisfactory for evaluation. Endocervical and/or squamous metaplasticcells (endocervical component)are present.[facility]ACED A#[id number] Work Phone: Comment on above:Satisfactory for evaluation. Endocervical and/or squamous metaplasticcells (endocervical component)are present.12-15-2021 NoteHNO ID: [id number] Author: Martinez Hernandez MD, PhD Service: ? Author Type: Physician Type: Progress Notes Filed: 12/15/2021 3:27 PM Note Text: [facility] [place] [facility] Consultation Follow-Up Visit December 15, 2021 Patient is here for: neuropathic pain related to: ? 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 Diffuse Pain with wide spread Central sensitization (FMS). ? Cervicogenic and chronic daily JADE Mild spinal arthropathy with Paraspinal Myofascial pain S/P concussion and development of chronic pain syndrome with significant Overall she is doing much better with PT, posture, core, cycling Benign interim history otherwise PVR: RIGHT SIDE: Positive for arterial compression with thoracic outlet maneuvers in the right arm. ? LEFT SIDE: Positive for arterial compression with thoracic outlet maneuvers in the left arm. ? No meds, stopped all supplements BP 143/98 Pulse 96 Ht 5' 6 (1.68m) Wt 220 lb 9.6 oz (100.1kg) SpO2 98% LMP 12/15/2021 BMI 35.62 kg/(m2). Exam: much improved mood and confidence abut her health and different aspects of her recovery plan, stable exam with improved pain. Impression: as above with much symptomatic improvement Suggest: Discussed all aspects of her recovery and care Emphasized symptom tracking and awareness about aggravating and aleviating measures Asked her to map her pain sites. F/U in 3-4 months Martinez Hernandez MD, PhD VT: 40 min (>50% face to face)[facility] History of Past illness Narrative* Problem Noted Date Resolved Date Gestational diabetes mellitus in childbirth 08/1601/06/2015 Overview: September 07, 2014 1hr 200. Needs DM supplies and teaching JEANA. Alessandra Musa MD Anemia, antepartum 09/07/2014 12/08/2014 High-risk supervision 06/12/2014 12/08/2014 Overview: Girl on us- 06/18/14 Outside records sent to L&D and to [facility]. mi. complicated by previous recurrent misc arriages 06/12/2014 12/08/2014 Previous delivery affecting 0 06/12/2014 12/08/2014 Overview: Planning repeat section by Dr Conway documented as of this encounter (statuses as of 07/14/2022) [facility] noteNo assessment information availableWooSt. Rita's Hospital Work Phone: Evaluation note* Diagnosis Onset Date Resolution Status Menorrhagia acute Encounter for routine gynecological examination noneactive [facility] Work Phone: Evaluation note* Diagnosis Arthropathy of spinal facet joint- Primary Spondylosis of unspecified site without mention of myelopathy Myofascial pain Mylagia and myositis, unspecified Brachial plexus disorders Brachial plexus lesions TOS (thoracic outlet syndrome) Brachial plexus lesions Cervicogenic headache Headache Neuropathic pain Neuralgia, neuritis, and radiculitis, unspecified Chronic daily headache Headache documented in this encounter [facility] Diagnosis Onset Date Resolution Status H/O bleeding disorder acute Iron deficiency anemia acute Menorrhagia acute Contraceptive management acu te Menorrhagia acute Encounter for IUD insertion noneactive [facility] Work Phone: Evaluation note* Diagnosis Onset Date Resolution Status Breast lump on left side at 12 o'clock position acute IUD strings lost acute Menorrhagia acute Encounter for routine gynecological examination noneactive [facility] Work Phone: Summary Purpose Family History No Family History Records Found Relationship Condition Age at Onset Recorded Date/T yuniel mother Malignant neoplasm Unknown grandmother Malignant neoplasm of breast Unknown Cardiac disease Unknown Advance Directives No Advanced Directives Records Found Advance Directive Response Recorded Date/ Time Living Will No March 14, 2018 9 :49am Power of Parts Processor No March 14, 2018 9:49am Advance Directive Response Recorded Date/ Time Name of Medical Power of Parts Processor ARELI October 10, 2022 9:04am Living Will Yes October 10 9:04am Power of Parts Processor Yes October 10, 2022 9:04am Advance Directive Response Recorded Date/ Time Living Will Yes October 10 022 10:04am Power of Parts Processor Yes October 10, 2022 10:04am Chief Complaint and Reason for Visit Chief Complaint POST CONCUSSION, HEA DACHES/ RX HERE SCREENING BASELINE Chief Complaint POST CONCUSSION, HEA DACHES/ RX HERE SCREENING BASELINE Annual (W[employer]ISH[employer]OL) Reason for Visit Menorrhagia Encounter for routine gynecological examination Chief Complaint PE DRUG SCREEN/PRC-S [facility] ED f/u excessive bleeding EMB/IUD INSERTION AUB Reason for Visit H/O bleeding disorde r Iron deficiency anemia Menorrhagia Contraceptive management Menorrhagia Encounter for IUD insertion Chief 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 Reason for Visit Breast lump on left side at 12 o'clock position IUD strings lost Menorrhagia Encounter for routine gynecological examination Chief 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 IUD LOST STRINGS Reason for Visit Breast lump on left side at 12 o'clock position IUD strings lost Menorrhagia Encounter for routine gynecological examination Chief 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 Goals (unrecognized section and content) Goals may be documented in a n alternate sectionGoals may be documented in an alternate sectionGoals may be documented in an alternate sectionGoals may be documented in an alternate sectionGoals may be documented in an alternate sectionGoals may be documented in an alternate section Source Comments (unrecognize d section and content) In the event this informatio n is protected by the Federal Confidentiality of Alcohol and Drug Abuse Patient Records regulations: The Federal rules restrict any use of the information to criminally investigate or prosecute any alcohol or drug abuse patient.[facility] Reason for Visit (unrecogniz ed section and content) Reason Comments Established Patient Care Teams (unrecognized sec tion and content) 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 Yoandy Brody MD Family Provider Active Dr. Yoandy Brody MD Primary Care Provider Active Team Status: Inactive Member Role Status Dates Dr. Yoandy Brody MD Primary Care Provider, Referring Provider Active Vaughn GARCIA PA Attending Provider Active Team Status: Inactive Member Role Status Dates Dr. Yoandy Brody MD Primary Care Provider, Referring Provider Active Dr. Chrissie Conway MD Attending Provider Active Team Status: Inactive Member Role Status Dates Dr. Yoandy Brody MD Primary Care Provider Active Terell Cristobal MD Attending Provider, Emergency Provid er Active Team Status: Inactive Member Role Status Dates Dr. Yoandy Brody MD Primary Care Provider Active Dr. Chrissie Conway MD Attending Provider Active Team Status: Active Member Role Status Dates Dr. Yoandy Brody MD Family Provider Active No Primary Care Physician Primary Care Provider Active Team Status: Inactive Member Role Status Dates Dr. Yoandy Brody MD Referring Provider Active Dr. Chrissie Conway MD Attending Provider Active Team Status: Inactive Member Role Status Dates Dr. Chrissie Conway MD Attending Provider, Referr ing Provider Active No Primary Care Physician Primary Care Provider Active Team Status: Active Member Role Status Dates No Primary Care Physician Primary Care Provider Active Health Risk Assessment Attending Provider Active Team Status: Inactive Member Role Status Dates No Primary Care Physician Primary Care Provider Active Dr. Chrissie Conway MD Attending Provider, Referr ing Provider Active FOR RECORDS PERTAINING TO PATIENTS WHO ARE OR HAVE BEEN ENROLLED IN A CHEMICAL DEPENDENCY/SUBSTANCEABUSE PROGRAM, SOME INFORMATION MAY BE OMITTED. This clinical summary was aggregated from multiple sources. Caution should be exercised in using it in the provision of clinical care. This summary normalizes information from multiple sources, and as a consequence, information in this document may materially change the coding, format and clinical context of patient data. In addition, data may be omitted in some cases. CLINICAL DECISIONS SHOULD BE BASED ON THE PRIMARY CLINICAL RECORDS. [employer] provides no warranty or guarantee of the accuracy or completeness of information in this document.
--- NOTE | 2025-04-02 07:15 | BI_ITS ---
EXAM: SCRN MAMM (CAD)W/JOYCE BILAT DATE: 04/02/2025 CLINICAL HISTORY: F, Age 44 y/o , SCREEN FOR BREAST CANCER Grandmother with breast cancer. History of prior bilateral breast reduction surgery. BREAST CANCER RISK ASSESSMENT: Not assessed. TECHNIQUE: Bilateral screening digital breast tomosynthesis with 2D and 3D images. Computer aided detection. COMPARISON: Prior exam(s) dated March 28, 2024.. FINDINGS: TISSUE DENSITY: The breast tissue is almost entirely fatty. Bilateral Breast Mammographic Findings: No significant masses, calcifications or other abnormalities are identified. Stable bilateral densely calcified nodular densities. No suspicious masses, areas of developing architectural distortion, or suspicious calcifications. There has been no significant interval change. BI/SCRN MAMM (CAD)W/JOYCE BILAT IMPRESSION: Stable examination. OVERALL FINAL ASSESSMENT BI-RADS 2: BENIGN RECOMMEND ANNUAL MAMMOGRAPHIC SCREENING. RECOMMENDATION: Routine annual follow-up in 1 Year A letter with findings and recommendations will be mailed to the patient. Reading Location: [place] [address]
== END | disposition home or self-care (01) ==
PROVIDERS: PCP Family Medicine; Referring Provider Obstetrics & Gynecology; Visit Provider Obstetrics & Gynecology
DX: Z12.31 Encounter for screening mammogram for malignant neoplasm of breast (principal); Z80.3 Family history of malignant neoplasm of breast
CPT/HCPCS: 77063; 77067